=== PATIENT | female | born 1970 | race Two or more races ===

== ENCOUNTER 2019-04-13 21:16 | Emergency (ER) | payer OTHER ==
[~2019-04-13] VITALS: Ht 160 cm; Wt 70.3 kg
[2019-04-14] MEDS ORDERED: ALBUTEROL2.5 MG/3 M IH (02:18)
[2019-04-14] MEDS ORDERED: ZYNCOF 20-400120 ML PO (02:18)
[2019-04-14] MEDS ORDERED: DOLOGESIC 500-1 EACH PO (02:18)
== END 2019-04-14 02:20 | disposition home or self-care (01) ==
LOC: ER 21:16
DX: J11.1 Influenza due to unidentified influenza virus with other respiratory manifestations (principal)